=== PATIENT | female | born 1985 | race Caucasian/White ===

== ENCOUNTER 2018-10-14 23:20 | Emergency (ER) | payer MEDICAID, OTHER ==
[~2018-10-14] VITALS: Ht 157.5 cm; Wt 103.0 kg
[2018-10-14 23:38] VITALS: RESP 18; Ht 157.5 cm; Wt 103.0 kg
[2018-10-15] MEDS ORDERED: ACETAMINOPHEN 500 MG TAB PO STA (02:53)
[2018-10-15] MEDS ORDERED: CEPHALEXIN 500 MG CAP PO ONE (03:00)
[2018-10-15] MEDS ORDERED: DIPHTH/TET/ACEL PERTUSS (ADULT) 0.5 ML VIAL IM* ONE (03:00)
[2018-10-15] MEDS ORDERED: IBUPROFEN 800 MG TAB PO ONE (03:00)
[2018-10-15] MEDS ORDERED: CEPH-443 PO (03:28)
[2018-10-15] MEDS ORDERED: NAPR-985 PO (03:28)
[2018-10-15] MEDS ORDERED: TRAM50TA2 PO (03:28)
--- NOTE | 2018-10-15 03:32 | ERD ---
ER Documentation Chief Complaint Chief Complaint C/O LT THUMB PAIN AND SWELLING X1 WEEK S/P BEING POKED W/ METAL HPI History of Present Illness: 33-year-old female who denies a past medical history coming in today with complaint of left thumb pain and swelling that is been present for 1 week. Patient reports being at a department store in which a security/intact did not have a back on it and it poked her thumb, it was needle/metal. Tetanus status unknown. At home pharmacological/nonpharmacological treatment for symptoms: Denies Denies social concerns; Denies recent foreign travel ROS All systems reviewed and are negative except as per history of present illness. Medications Home Meds Active Scripts Tramadol HCl (Tramadol HCl) 50 Mg Tablet, 50 MG PO Q8 PRN for MODERATE/SEVERE PAIN, #6 TAB Prov:DEEP BULLOCK [employer] 10/15/18 Naproxen* (Naprosyn*) 500 Mg Tablet, 500 MG PO BID PRN for PAIN AND/OR INFLAMMATION, #30 TAB Prov:DEEP BULLOCK [employer] 10/15/18 Cephalexin* (Keflex*) 500 Mg Capsule, 500 MG PO QID for FINGER INFECTION for 7 Days, CAP Prov:DEEP BULLOCK [employer] 10/15/18 Allergies Allergies: Coded Allergies: No Known Allergy (Unverified , 08/27/11) PMhx/Soc History of Surgery: No Anesthesia Reaction: No Hx Neurological Disorder: No Hx Respiratory Disorders: No Hx Cardiac Disorders: No Hx Psychiatric Problems: No Hx Miscellaneous Medical Probl: No Hx Alcohol Use: No Hx Substance Use: No Hx Tobacco Use: No Smoking Status: Never smoker FmHx Family History: No diabetes, No coronary disease Physical Exam Vitals Vital Signs Date Temp Pulse Resp B/P (MAP) Pulse Ox O2 O2 Flow FiO2 Time Delivery Rate 10/14/18 98.1 73 18 120/67 98 23:38 (84) Physical Exam Const: No acute distress Head: Atraumatic Eyes: Normal Conjunctiva ENT: Normal External Ears, Nose and Mouth. Neck: Full range of motion. No meningismus. Resp: Clear to auscultation bilaterally Cardio: Regular rate and rhythm, no murmurs Abd: Soft, non tender, non distended. Normal bowel sounds Skin: No petechiae or rashes; tenderness, erythema, mild warmth noted to left thumb, no fluctuant Back: No midline or flank tenderness Ext: No cyanosis, or edema Neur: Awake and alert Psych: Normal Mood and Affect Results 24 hrs Current Medications Medications Dose Sig/Corrie Start Time Status Last (Trade) Ordered Route PRN Stop Time Admin Dose Reason Admin Diphtheria/ 0.5 ml ONCE ONCE 10/15/18 DC 10/15/18 Tetanus/Acell IM* 03:00 03:06 Pertussis 10/15/18 03:01 (Adacel) Ibuprofen 800 mg ONCE ONCE 10/15/18 DC 10/15/18 (Motrin) PO 03:00 03:05 10/15/18 03:01 Cephalexin 500 mg ONCE ONCE 10/15/18 DC 10/15/18 (Keflex) PO 03:00 03:05 10/15/18 03:01 1,000 mg ONCE STAT 10/15/18 DC 10/15/18 Acetaminophen PO 02:53 03:05 (Tylenol 10/15/18 02:54 Tab) Procedures/MDM ED course includes a thorough examination and history. Medications: Tdap, Keflex, ibuprofen, acetaminophen Imaging: Labs: Low suspicion for life-threatening medical emergency. Low suspicion for infectious emergency that requires hospitalization or IM/IV antibiotics. Otherwise healthy patient presenting with constellation of symptoms likely representing uncomplicated abscess of finger secondary to puncture wound as characterized by history, physical exam findings. Patient reassessment @0328: Patient hemodynamically stable. No respiratory distress, otherwise relatively well appearing and nontoxic. Disposition given. Patient educated on diagnoses, prescriptions, follow-up care, return precautions. Strict return precautions given for worsening condition; questions answered discharge. Disposition for discharge with followup in 2 days with PCP/clinic. Departure Diagnosis: Primary Impression: Abscess of finger, left Additional Impression: Puncture wound of finger Encounter type: initial encounter Qualified Codes: S61.239A - Puncture wound without foreign body of unspecified finger without damage to nail, initial encounter Condition: Stable Patient Instructions: Abscess, Antiobiotic Treatment Only Referrals: COMMUNITY CLINICS YOU HAVE RECEIVED A MEDICAL SCREENING EXAM AND THE RESULTS INDICATE THAT YOU DO NOT HAVE A CONDITION THAT REQUIRES URGENT TREATMENT IN THE EMERGENCY DEPARTMENT. FURTHER EVALUATION AND TREATMENT OF YOUR CONDITION CAN WAIT UNTIL YOU ARE SEEN IN YOUR DOCTORS OFFICE WITHIN THE NEXT 1-2 DAYS. IT IS YOUR RESPONSIBILITY TO MAKE AN APPOINTMENT FOR FOLOW-UP CARE. IF YOU HAVE A PRIMARY DOCTOR --you should call your primary doctor and schedule an appointment IF YOU DO NOT HAVE A PRIMARY DOCTOR YOU CAN CALL OUR PHYSICIAN REFERRAL HOTLINE AT IF YOU CAN NOT AFFORD TO SEE A PHYSICIAN YOU CAN CHOSE FROM THE FOLLOWING [facility] [id number] [facility] [address] [facility] [address] [facility] [address] [facility] [address] [facility]. [facility] [address] [facility] YOU HAVE RECEIVED A MEDICAL SCREENING EXAM AND THE RESULTS INDICATE THAT YOU DO NOT HAVE A CONDITION THAT REQUIRES URGENT TREATMENT IN THE EMERGENCY DEPARTMENT. FURTHER EVALUATION AND TREATMENT OF YOUR CONDITION CAN WAIT UNTIL YOU ARE SEEN IN YOUR DOCTORS OFFICE WITHIN THE NEXT 1-2 DAYS. IT IS YOUR RESPONSIBILITY TO MAKE AN APPOINTMENT FOR FOLOW-UP CARE. IF YOU HAVE A PRIMARY DOCTOR --you should call your primary doctor and schedule and appointment IF YOU DO NOT HAVE A PRIMARY DOCTOR YOU CAN CALL OUR PHYSICIAN REFERRAL HOTLINE AT . IF YOU CAN NOT AFFORD TO SEE A PHYSICIAN YOU CAN CHOSE FROM THE FOLLOWING [facility]: [facility] [address] [place] [address] [facility] [address] [place] [address] [facility] [address] [place] [address] Additional Instructions: Thank you very much for allowing us to participate in your care. Your health and safety is our top priority at [facility]. It is important to read all discharge instructions and education provided in your discharge packet. Call your primary care doctor TOMORROW for an appointment during the next 2-4 days and bring all the information and medications prescribed. Have prescriptions filled and follow precisely the directions on the label. -Cephalexin is an antibiotic; take this medication every day as listed on your prescription. You must complete the entire course of treatment that is listed on your prescription this is very important because it takes a certain number of days to kill the bacteria that is causing the infection. -Naproxen is a anti-inflammatory/pain medication; take this medication daily as prescribed for the next week to help with swelling/inflammation/pain. -Tramadol is an opiate pain medication; take this medication as needed for moderate to severe pain. No operating of heavy machinery while taking this medication. It may cause drowsiness. If the symptoms get worse and your provider is unavailable, return to the Emergency Department immediately. DEEP BULLOCK NP October 15, 2018 03:32
[2018-10-15 03:39] VITALS: BP 129/60; PULSE 66
== END 2018-10-15 03:40 | disposition home or self-care (01) ==
LOC: FTE 23:20
DX: S61.032A Puncture wound without foreign body of left thumb without damage to nail, initial encounter (principal); W22.8XXA Striking against or struck by other objects, initial encounter; Y92.512 Supermarket, store or market as the place of occurrence of the external cause; Z23 Encounter for immunization
CPT/HCPCS: 90471; 90715; Z7502; Z7610